=== PATIENT | female | born 1990 | race Caucasian/White ===

== ENCOUNTER 2022-05-19 14:52 | Emergency (ER) | payer OTHER ==
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
== END 2022-05-19 16:03 | disposition home or self-care (01) ==
LOC: ER 14:52
DX: F32.A Depression, unspecified (principal); F43.20 Adjustment disorder, unspecified
CPT/HCPCS: 99283

== ENCOUNTER 2022-05-21 01:43 | Emergency (ER) | payer OTHER ==
[2022-05-21] MEDS ORDERED: LIDOCAINE 1% MPF 30 ML VIAL ONE (01:59)
[2022-05-21] MEDS ORDERED: ONDANSETRON 4 MG (ODT) TAB ONE (02:15)
[2022-05-21] MEDS ORDERED: MORPHINE 4 MG/ML SYR ONE (03:11)
[2022-05-21] MEDS ORDERED: AMOX/K CLAV 875 MG TAB ONE (03:50)
[2022-05-21] MEDS ORDERED: TETANUS & DIPHTHERIA TOX,ADULT 0.5 ML VIAL ONE (03:50)
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
[2022-05-21 06:02] VITALS: TEMP 98.4; O2SAT 100
[2022-05-21 06:04] VITALS: BP 108/62
--- NOTE | 2022-05-21 10:48 | RAD REPORT ---
EXAM DESCRIPTION: XR HAND CLINICAL HISTORY: Laceration, eval for foreign body COMPARISON: None. TECHNIQUE: XR HAND 3 OR MORE VIEWS 05/21/2022 2:11 AM CDT FINDINGS: There is no fracture. Joint spaces are preserved. Soft tissues are unremarkable. IMPRESSION: No acute osseous findings. Electronically signed by: Arjun Villalpando MD 05/21/2022 3:36 AM CDT Due to temporary technical issues with the PACS/Fluency reporting system, reports are being signed by the in house radiologists without review as a courtesy to insure prompt reporting. The interpreting radiologist is fully responsible for the content of the report.
== END 2022-05-21 04:16 | disposition home or self-care (01) ==
LOC: ER 01:43
PROC: 0JQJ0ZZ Repair Right Hand Subcutaneous Tissue and Fascia, Open Approach (ICD-10-PCS; principal; 2022-05-21)
DX: S61.411A Laceration without foreign body of right hand, initial encounter (principal); Z23 Encounter for immunization; Z94.0 Kidney transplant status
CPT/HCPCS: 73130; 90471; 90714; 96372; 99284; 12005; Q0162

== ENCOUNTER 2022-05-21 10:21 | Emergency (ER) | payer OTHER ==
--- OUTSIDE RECORDS SUMMARY | 2022-05-21 10:24 | XMS REPORT | Continuity of Care Document ---
:1990 Author Organization [facility] t Address [address] [place] [address] Care Team Providers Name Role Phone RAMIREZSAILAJA BOO ENMA Primary Care Physician Unavailable MARY DELEON Attending Clinician Unavailable Sneha Saxena RN Attending Clinician Unavailable Only, Pcp [address] Test Attending Clinician Unavailable Fatuma Kulkarni MD Attending Clinician FATUMA KULKARNI Attending Clinician Unavailable Dang Martínez Attending Clinician MONCHO MORAN Attending Clinician Unavailable UNKNOWN, ATTENDING Attending Clinician Unavailable Payers Payer Name Policy Type Policy Number Effective Date Expiration Date [facility] [id number] 2019 PPO 00:00:00 [employer] [id number] 2020 00:00:00 Problems Condition Condition Condition Status Onset Resolution Last Treating Co mments Source Name Details Category Date Date Treatment Clinician Date Elevated Elevated Disease Active 2012-09 Overview[facility] serum serum 10-07 Formatem Chaney creatinine creatinine 00:00: g of this Medical 00 note Center might be different from the original. Creatinin e elevated with previous labs, now decreased . Biopsy and ultrasoun d downLast Assessmen t & Plan: Formattin g of this note might be different from the original. Continue to monitor creatinin e CKD CKD Disease Active 2012-[address] [facility] (ch[facility] 09-23 [facility] kidney 00:00: Medical disease) disease) 00 Center stage 5, stage 5, GFR less GFR less than 15 than 15 ml/min ml/min Status Status Disease Active 2012-09 Overview: [facility] post post 09-23 [facility] 00:00: g of this Medical transplant transplant 00 note Ce nter might be different from the original. S/p LRKT. Biopsy and ultrasoun d on 08/03/13 negative for rejection ICD9 DX ReplacerL ast Assessmen t & Plan: Formattin g of this note might be different from the original. On cyclospor ine, prednison e and myforticC reatinine improving Interstiti Interstiti Disease Active 2012-[address] al al 09-19 [facility] nephritis nephritis 00:00: Medi ashu 00 Center Immunosupp Immunosupp Disease Active 2012-09 Overview : [facility] ression ression 09-17 [facility] 00:[facility]: [facility] of this Medical 00 note Center might be different from the original. On cyclospor ine 150/150, prednison e 10, myfortic 720/720. Cyclospor ine level today 238, previousl y elevated as wellLast Assessmen t & Plan: Formattin g of this note might be different from the original. Will reduce cyclospor ine to 125/125. This was communica jimenez and explained to the patient with plenty of time allotted for questions . HSP HSP Disease Active Overview: [facility] ([facility] ([facility]och 10-12 [facility] Sch[facility]lein Schonlein 00:00: g of this M edical purpura) purpura) 00 note Center might be different from the original. As a child HTN HTN Disease Active 2011-09 Overview: [facility] (hypertens (hypertens 2-13 [facility] ion) ion) 00:00: g of this Medical 00 note Center might be different from the original. BPs elevated on home monitor, which patient states correlate s well with clinic monitorLa st Assessmen t & Plan: Formattin g of this note might be different from the original. Will defer managemen t of hypertens ion to nephrolog y No known No known Disease Unive rs active active ity of problems problems [facility] Morbid Morbid Problem Active 2021-04-17 Rahul be obesity obesity 21:43:25 l (disorder) (disorder) He rmann Active Problem 04/17/2021 [facility] Group Irregular Irregular Problem Active 2021-04-17 Memoria periods periods 21:43:25 l (finding) (finding) Alfredo main Active Problem 04/17/2021 Medical Group Mixed Mixed Problem Active 2021-04-17 Memor ia anxiety anxiety 21:43:25 l and and Remi depressive depressive disorder disorder (disorder) (disorder) Active Problem 04/17/2021 Medical Group Allergies, Adverse Reactions, Alerts Allergy Allergy Status Severity Reaction(s) Onset Inactive Treating Comm ents Source Name Type Date Date Clinician NO KNOWN Drug Active Univers ALLERGIE Class [facility] [place] [facility] Family History Family Member Diagnosis Comments Start Date Stop Date Source Maternal grandmother Cancer [facility] Maternal grandmother Heart attack [facility] Paternal grandfather Arthritis [facility] Paternal grandfather Heart attack [facility] Paternal grandfather Stroke [facility] Paternal grandmother Cancer [facility] Paternal grandmother Hypertension [facility] Social History Social Habit Start Date Stop Date Quantity Comments Source Exposure to Yes [facility] of SARS-CoV-2 [place] [facility] (event) Branch History SDOH [facility] Alcohol Frequency Medical Center History SDOH [facility] Alcohol Std Medical Cente r Drinks History SDOH [facility] Alcohol Binge Medical Anai ter Social History 2021-02-11 2021-02-11 [facility] saba 20:57:23 20:57:23 Alcohol intake 2014-06-04 2014-06-[address] [address] Ami es 00:00:00 00:00:00 non-drinker of Medical Ce nter alcohol (finding) Tobacco use and 2012-08-24 2012-08-[address] [facility] kes exposure 00:00:00 00:00:00 Medical Center History SDOH 2012-08-24 2012-08-[address] [facility] Alcohol Comment 00:00:00 00:00:00 Medical C enter Sex Assigned At [address] 00:00:00 00:00:00 Medical Center Smoking Status Start Date Stop Date Source Never smoker [facility] Medications Ordered Filled Start Stop Current Ordering Indication Dosage Frequency Signature Comments Components Source Medication Medication Date Date Medication? Clinician (SIG) Name Name albuterol Yes [id number] 2{puff} Inhale 2 Univers 90 7-10 Puffs ity of mcg/actuati 00:00: every 4 Inderjit as on inhaler 00 (four) Medical hours as Branch needed for Wheezing or Shortness of Breath. albuterol Yes [id number] 2{puff} Inhale 2 Univers 90 7-10 Puffs ity of mcg/actuati 00:00: every 4 Inderjit as on inhaler 00 (four) Medical hours as Branch needed for Wheezing or Shortness of Breath. sertraline Yes 150 mg = Mem oria 100 mg oral 6-02 1.5 tab, l tablet 20:08: PO, Daily, Alma nn 00 # 135 tab, 1 Refill(s), Pharmacy: [facility] #[id number], 167.64, cm, 02/11/21 14:47:00 CDT, Height, 115.085, kg, 02/11/21 14:47:00 CDT, Weight tacrolimus Yes 0.5 mg = 1 M emoria 0.5 mg oral 6-02 cap, PO, l capsule 19:49: Daily, 0 Ion n 00 Refill(s) sertraline No 100 mg = 1 M emoria 100 mg oral 6-02 tab, PO, l tablet 19:48: Daily, # [place] 00 30 tab, 1 Refill(s) tacrolimus Yes 1 mg = 1 Mem oria 1 mg oral 6-02 cap, PO, l capsule 19:48: Q12H, # Remi 00 180 cap, 0 Refill(s) predniSONE Yes 5mg QD Take [address] (DELTASONE) 3-24 by mouth Luke s 5 MG tablet 14:51: daily. [facility] ashu 53 Center sulfamethox Yes 1{tbl} QD Take [address] azole-trime 3-24 tablet by Ami es thoprim 14:51: mouth Medical (BACTRIM,SE 53 daily. Center PTRA) discontinu 400-80 mg ed per tablet ferrous Yes 325mg Take 325 [facility] sulfate 325 3-24 mg by [facility]ukes (65 FE) MG 14:51: mouth Medica l tablet 53 daily with Center breakfast. multivitami 2015-0 Yes 1{tbl} QD Take [address] n 3-24 tablet by Shiv (MULTIVITAM 14:51: mouth Medic al IN) per 53 daily. Coulter tablet Immunizations Ordered Filled Immunization Date Status Comments Sarita potts Immunization Name Name SARS-COV-2 COVID-19 2021-01-26 Completed Unive rsity of MODERNA VACCINE 00:00:00 [facility] SARS-COV-2 COVID-19 2021-01-26 Completed Unive rsity of MODERNA VACCINE 00:00:00 [facility] Moderna COVID-19 Moderna COVID-19 2021-01-26 Completed Vaccine Vaccine 00:00:00 SARS-COV-2 COVID-19 2020-12-29 Completed Unive rsity of MODERNA VACCINE 00:00:00 [facility] SARS-COV-2 COVID-19 2020-12-29 Completed Unive rsity of MODERNA VACCINE 00:00:00 [facility] Moderna COVID-19 Moderna COVID-19 2020-12-29 Completed Vaccine Vaccine 00:00:00 Vital Signs Vital Name Observation Time Observation Value Comments Source Systolic (mm Hg) 2021-02-11 19:47:00 Rahul Khalil Diastolic (mm Hg) 2021-02-11 19:47:00 Caden orisandra Khalil Heart Rate 2021-02-11 19:47:00 Rachel Khalil Temperature Oral (F) 2021-02-11 19:47:00 97.5 F [facility] Remi Height 2021-02-11 19:47:00 167.64 cm [facility] Remi Weight 2021-02-11 19:47:00 [facility] Remi BMI Calculated 2021-02-11 19:47:00 Carmelo Rodriguez Procedures Procedure Date / Time Performed Performing Clinician Sarita potts PAP smear 2019-06-22 05:00:00 Rachel vigil preparation<sup>1</sup> Encounters Start End Encounter Admission Attending Care Care Encounter Source Date/Time Date/Time Type Type Clinicians Facility Department ID 2021-07-13 Emergency [facility] [id number] Univers 07:18:09 ity of [facility] 2021-07-12 Emergency [facility] [id number] Univers 16:08:42 ity [facility] 2021-09-07 2021-09-07 Outpatient R [facility] [id number] Univers 19:45:00 19:45:00 [id number] ity [facility] 2021-09-07 2021-09-07 Outpatient R PANCHO, [facility] [id number] Univers 19:45:00 19:45:00 [facility] 2021-05-21 2021-05-21 Telephone EDGARD Saxena [id number] Univers 00:00:00 00:00:00 Sneha HAYES [id number] it y of HOSPITAL [id number] Inderjit as [id number] [address] 2021-05-19 2021-05-19 Laboratory Only, Pcp [address] Test [facility] [id number] Univers 14:01:17 14:16:17 Only Fatuma Kulkarni PRIMARY [id number] ity of [facility] [id number] [id number] [address] 2021-05-19 2021-05-19 [facility] [id number] Univers 14:00:00 14:00:00 FATUMA [facility] 2021-05-19 2021-05-19 Outpatient [facility] [id number] Univers 14:00:00 14:00:00 [id number] [facility] 2021-04-15 2021-04-15 Ambulatory nullFlavo [facility] [id number] Memoria 15:30:00 15:30:00 Pre-Reg r Primary 01 l Ayden Arciniega 2021-04-15 2021-04-15 Outpatient [facility]IE [place] [id number] Memoria 10:30:00 10:30:00 01 madison Khalil 2021-04-15 2021-04-15 [id number] 10:30:00 10:30:00 Matt Lopes 2021-02-11 2021-02-12 Outpatient nullFlavo [facility] [id number] Memoria 19:30:00 04:59:59 r Primary 00 l Ayden Arciniega 2021-02-11 2021-02-11 Outpatient Recavarren [facility] [id number] 14:30:00 23:59:59 Lopes, 00 Dang Walter 2021-02-11 2021-02-11 Outpatient SHERIDEBBI [facility] [id number] Memoria 14:30:00 14:30:00 00 madison Khalil 2021-01-26 2021-01-26 Outpatient R LUISA, [facility] [id number] Univers 08:40:00 08:40:00 MONCHO [facility] 2021-01-26 2021-01-26 Outpatient GCCOVIDV GCCOVIDV [id number] GCCOVID 00:00:00 00:00:00 V 2020-12-29 2020-12-29 Outpatient [facility] [id number] Univers 08:40:00 [facility]:40[facility] 2020-12-29 2020-12-29 Outpatient [facility] [id number] Univers 07:20:00 07:20:00 [facility] 2020-12-29 2020-12-29 Outpatient GCCOVIDV GCCOVIDV [id number] GCCOVID 00:00:00 00:00:00 V 2020-12-16 2020-12-16 Outpatient [facility] [id number] Univers 14:00:00 14:00:00 [facility] 2020-10-21 2020-10-21 Outpatient R [facility] [id number] Univers 15:00:00 15:00:00 [id number] [facility] 2020-10-20 2020-10-20 Outpatient R [facility] [id number] Univers 10:00:00 10:00:00 [id number] [facility] 2020-10-20 2020-10-20 Outpatient R NERY, [facility] [id number] Univers 10:00:00 10:00:00 FATUMA [facility] 2020-07-15 2020-07-15 Outpatient R [facility] [id number] Univers 10:30:00 10:30:00 [id number] [facility] 2020-07-15 2020-07-15 Outpatient R UNKNOWN, [facility] [id number] [facility] 10:30:00 10:30:00 ATTENDING y [facility] Results This patient has no known results.
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
[2022-05-21] MEDS ORDERED: HYDROCODONE/APAP 10/325 TAB ONE (12:29)
[2022-05-21 13:19] VITALS: BP 124/93; TEMP 98; O2SAT 100
== END 2022-05-21 12:23 | disposition home or self-care (01) ==
LOC: ER 10:21
DX: S61.411A Laceration without foreign body of right hand, initial encounter (principal)
CPT/HCPCS: 99284

== ENCOUNTER 2022-06-01 07:55 | Day surgery (SDC) | payer OTHER ==
[2022-06-01 08:08] LABS: Specific Gravity 1.017 (1.005-1.030)
[2022-06-01 08:19] LABS: SARS-CoV-2 Antigen Rapid Res Negative (Negative)
[2022-06-01] MEDS ORDERED: CEFAZOLIN SODIUM 1 GM/VIAL ONE (08:36)
[2022-06-01] MEDS ORDERED: Ringers Lactate 1,000 ML IV ONE (08:36)
[2022-06-01] MEDS ORDERED: propofoL 200 MG/20 ML VIAL IV ONE (08:41)
[2022-06-01] MEDS ORDERED: MIDAZOLAM HCL 2 MG/2 ML INJ ONE (08:42)
[2022-06-01] MEDS ORDERED: FENTANYL CITR 100 MCG/2 ML ONE ×2 (08:42→11:05)
[2022-06-01] MEDS ORDERED: LIDOCAINE 1% MPF 5 ML VIAL ONE (08:42)
[2022-06-01] MEDS ORDERED: NS 0.9% VIAL 10 ML ONE (09:20)
[2022-06-01] MEDS ORDERED: dexAMETHasone 10 MG/ML VIAL ONE (09:41)
[2022-06-01] MEDS ORDERED: ONDANSETRON 4 MG/2 ML VIAL ONE (10:23)
[2022-06-01] MEDS ORDERED: KETOROLAC 30 MG/ML INJ ONE (10:23)
[2022-06-01] MEDS: MORPHINE 4 MG/ML SYR ONE ×2 (10:32→10:37)
[2022-06-01 11:04] VITALS: O2SAT 97
[2022-06-01] MEDS ORDERED: HYDROCODONE/APAP 10/325 TAB PO ONE (11:29)
[2022-06-01] MEDS ORDERED: HYDROCODONE/APAP 10/325 TAB ONE (11:43)
[2022-06-01 12:03] VITALS: BP 102/59; TEMP 97.4
--- NOTE | 2022-06-02 08:31 | HP ---
Date of Admission: 06/01/2022 History Of Present Illness: Patient is a 31-year-old white female, right-hand dominant, who cut her right thumb on 05/21/2022 . She has history of a kidney transplant . She has an oblique laceration sutures in place over the right thumb at the MCP level, has numbness in the radia l half of the thumb assessment, laceration of the radial nerve, possible artery of the right thumb. Plan: Exploration and repair. JESUS/JUANITA Voice ID: [id number]
--- NOTE | 2022-06-02 08:31 | OP ---
Surgeon: Wilner Lagnley MD Preoperative Diagnosis: Laceration of the right thumb. Postoperative Diagnosis: Laceration of the right thumb with laceration of the radial digital nerve. Procedures Performed: Debridement of skin and subcu tissue and dissection and repair of lacerated ra dial digital nerve. Anesthesia: General. Procedure In Detail: After satisfactory induction of general anesthesia, the right hand was prepped with Betadine scrub, Betadine paint, and dry sterile drapes applied in usual manner. The arm was iliana vated and exsanguinated with Esmarch. Tourniquet inflated to 250 mmHg. Hand placed on roll lock tab le. Sutures were removed from the previous closure and then proximal distal extension was made. Dis section proceeded down. The patient had laceration of the flexor sheath, but the hand was intact. T he artery had thrombosed and the nerve had been transected and retracted proximally and distally. Th ey were identified proximally and distally and then the Zeiss microscope was brought into the field a nd epineural dissection was done and an epineural repair with 9-0 Prolene sutures. After this was do ne, the tourniquet was released. Electrocautery was used for hemostasis. Skin was debrided as neede d for closure and wounds were closed with 4-0 Prolene horizontal mattress and vertical mattress simpl e sutures. Dressed with Xeroform, 2 inch Lit. The patient tolerated procedure well and returned t o recovery. JESUS/JUANITA Voice ID: [id number] Report ID: [id number]
== END 2022-06-01 12:06 | disposition home or self-care (01) ==
LOC: DS 07:55
PROVIDERS: ATTEND Specialist
PROC: 01Q60ZZ Repair Radial Nerve, Open Approach (ICD-10-PCS; principal; 2022-06-01 09:00)
DX: S61.011A Laceration without foreign body of right thumb without damage to nail, initial encounter (principal); S64.21XA Injury of radial nerve at wrist and hand level of right arm, initial encounter
CPT/HCPCS: 36415; 81025; 87811; 64834; 69990; J2704; J2001; J2250; J3010 ×2; J1100; A4216; J7120; J2405; J0690

== ENCOUNTER 2022-06-06 08:32 | Emergency (ER) | payer OTHER ==
--- OUTSIDE RECORDS SUMMARY | 2022-06-06 08:36 | XMS REPORT | Continuity of Care Document ---
:1990 Author Organization [facility] t Address [address] [place] [address] Care Team Providers Name Role Phone Sharpless Primary Care Physician MARY DELEON Attending Clinician Unavailable Sneha Saxena RN Attending Clinician Unavailable Only, Pcp [address] Test Attending Clinician Unavailable Fatuma Kulkarni MD Attending Clinician FATUMA KULKARNI Attending Clinician Unavailable Dang Martínez Attending Clinician MONCHO MORAN Attending Clinician Unavailable UNKNOWN, ATTENDING Attending Clinician Unavailable Payers Payer Name Policy Type Policy Number Effective Date Expiration Date [facility] [id number] 2019 PPO 00:00:00 [employer] [id number] 2020 00:00:00 Problems Condition Condition Condition Status Onset Resolution Last Treating Co mments Source Name Details Category Date Date Treatment Clinician Date Elevated Elevated Disease Active 2012-09 Overview: [facility] serum serum 10-07 Formattin Shiv creatinine creatinine 00:00: g of this Medical 00 note Center might be different from the original. Creatinin e elevated with previous labs, now decreased . Biopsy and ultrasoun d downLast Assessmen t & Plan: Formattin g of this note might be different from the original. Continue to monitor creatinin e CKD CKD Disease Active 2012-[address] [facility] (chronic (chronic 09-23 [facility] kidney kidney 00:00: Medical disease) disease) 00 [...] t of hypertens ion to nephrolog y Irregular Irregular Problem Active 2021-04-17 Memoria periods periods 21:43:25 l (finding) (finding) Herm jose david Active Problem 04/17/2021 [facility] Group Mixed Mixed Problem Active 2021-04-17 Memor ia anxiety anxiety 21:43:25 l and and Remi depressive depressive disorder disorder (disorder) (disorder) Active Problem 04/17/2021 Medical Group Morbid Morbid Problem Active 2021-04-17 Rahul be obesity obesity 21:43:25 l (disorder) (disorder) Obi blake Active Problem 04/17/2021 Medical Group No known No known Disease Unive rs active active ity of problems problems [facility] Allergies, Adverse Reactions, Alerts Allergy Allergy Status Severity Reaction(s) Onset Inactive Treating Comm ents Source Name Type Date Date Clinician NO KNOWN Drug Active Univers ALLERGIE Class ity of [facility] Family History Family Member Diagnosis Comments Start Date Stop Date Source Maternal grandmother Cancer [facility] Maternal grandmother Heart attack [facility] Paternal grandfather Arthritis [facility] Paternal grandfather Heart attack [facility] Paternal grandfather Stroke [facility] Paternal grandmother Cancer [facility] Paternal grandmother Hypertension [facility] Social History Social Habit Start Date Stop Date Quantity Comments Source Exposure to Yes University SARS-CoV-2 [place] [facility] (event) Branch History SDOH [facility] Alcohol Frequency Medical Center History SDOH [facility] Alcohol Std Medical Cente r Drinks History SDOH [facility] Alcohol Binge Medical Anai ter Social History 2021-02-11 [facility] 20:57:23 Alcohol intake 2014-06-04 2014-06-04 Current [...] Start Date Stop Date Source Never smoker [facility] Medications Ordered Filled Start Stop Current Ordering Indication Dosage Frequency Signature Comments Components Source Medication Medication Date Date Medication? Clinician (SIG) Name Name albuterol Yes [id number] 2{puff} Inhale 2 Univers 90 7-10 Puffs ity of mcg/actuati 00:00: every 4 Inderjit as on inhaler 00 (four) Medical hours as Branch needed for Wheezing or Shortness of Breath. albuterol Yes [id number] 2{puff} Inhale 2 Univers 90 7-10 Puffs ity of mcg/actuati 00:00: every 4 Inderjit as on inhaler 00 (four) Medical hours as Branch needed for Wheezing or Shortness of Breath. sertraline Yes 150 mg = Mem oria 100 mg oral 6-02 1.5 tab, l tablet 20:08: PO, Daily, Alma nn 00 # 135 tab, 1 Refill(s), Pharmacy: [facility] STORE #[id number], 167.64, cm, 02/11/21 14:47:00 CDT, Height, 115.085, kg, 02/11/21 14:47:00 CDT, Weight sertraline Yes 150 mg = Mem oria 100 mg oral 6-02 1.5 tab, l tablet 20:08: PO, Daily, Alma nn 00 # 135 tab, 1 Refill(s), Pharmacy: [facility] STORE #[id number], 167.64, cm, 02/11/21 14:47:00 CDT, Height, 115.085, kg, 02/11/21 14:47:00 CDT, Weight tacrolimus Yes 0.5 mg = 1 M emoria 0.5 mg oral 6-02 cap, PO, l capsule 19:49: Daily, 0 Ion n 00 Refill(s) tacrolimus Yes 0.5 mg = 1 M emoria 0.5 mg oral 6-02 cap, PO, l capsule 19:49: Daily, 0 Ion n 00 Refill(s) sertraline No 100 mg = 1 M emoria 100 mg oral 6-02 tab, PO, l tablet 19:48: Daily, # [place] 00 30 tab, 1 Refill(s) tacrolimus Yes 1 mg = 1 Mem oria 1 mg oral 6-02 cap, PO, l capsule 19:48: Q12H, # [place] 00 180 cap, 0 Refill(s) sertraline No 100 mg = 1 M emoria 100 mg oral 6-02 tab, PO, l tablet 19:48: Daily, # Remi 00 30 tab, 1 Refill(s) tacrolimus Yes 1 mg = 1 Mem oria 1 mg oral 6-02 cap, PO, l capsule 19:48: Q12H, # [place] 00 180 cap, 0 Refill(s) predniSONE Yes 5mg QD Take [address] (DELTASONE) 3-24 by mouth Luke s 5 MG tablet 14:51: daily. [address] sulfamethox Yes 1{tbl} QD Take [address] azole-trime 3-24 tablet by Ami es thoprim 14:51: mouth Medical (BACTRIM,SE 53 daily. [place] PTR) discontinu 400-80 mg ed per tablet ferrous Yes 325mg Take 325 [facility] sulfate 325 3-24 mg by Lukes (65 FE) MG 14:51: mouth Medica l tablet 53 daily with Center breakfast. multivitami Yes 1{tbl} QD Take [address] n 3-24 tablet by Lukes (MULTIVITAM 14:51: mouth Medic al [place]) per 53 daily. Center tablet predniSONE Yes 5mg QD Take [address] (DELTASONE) 3-24 by mouth Luke s 5 MG tablet 14:51: daily. [address] sulfamethox Yes 1{tbl} QD Take [address] azole-trime 3-24 tablet by Ami es thoprim 14:51: mouth Medical (BACTRIM,SE 53 daily. [place] PTR) discontinu 400-80 mg ed per tablet ferrous Yes 325mg Take 325 [facility] sulfate 325 3-24 mg by Lukes (65 FE) MG 14:51: mouth Medica l tablet 53 daily with Center breakfast. multivitami Yes 1{tbl} QD Take [address] n 3-24 tablet by Lukes (MULTIVITAM 14:51: mouth Medic al [place]) per 53 daily. Center tablet Immunizations Ordered Filled Immunization Date Status Comments [facility] e Immunization Name Name SARS-COV-2 COVID-19 2021-01-26 Completed Unive rsity of MODERNA VACCINE 00:00:00 [facility] SARS-COV-2 COVID-19 2021-01-26 Completed Unive rsity of MODERNA VACCINE 00:00:00 [facility] Moderna COVID-19 Moderna COVID-19 2021-01-26 Completed Vaccine Vaccine 00:00:00 SARS-COV-2 COVID-19 2020-12-29 Completed Unive rsity of MODERNA VACCINE 00:00:00 [facility] SARS-COV-2 COVID-19 2020-12-29 Completed Unive rsity of MODERNA VACCINE 00:00:00 [facility] Moderna COVID-19 Moderna COVID-19 2020-12-29 Completed Vaccine Vaccine 00:00:00 Vital Signs Vital Name Observation Time Observation Value Comments Source Heart Rate 2021-02-11 19:47:[address] [facility] Remi Temperature Oral (F) 2021-02-11 19:47:00 97.5 F [facility] Height 2021-02-11 19:47:00 [facility] Weight 2021-02-11 19:47:00 [facility] BMI Calculated 2021-02-11 19:47:00 Carmelo Rodriguez Systolic (mm Hg) 2021-02-11 19:47:00 Rahul Khalil Diastolic (mm Hg) 2021-02-11 19:47:00 Mem orial Remi Procedures Procedure Date / Time Performed Performing Clinician Sarita e PAP smear 2019-06-22 05:00:00 Rachel vigil preparation<sup>1</sup> Encounters Start End Encounter Admission Attending Care Care Encounter Source Date/Time Date/Time Type Type Clinicians Facility Department ID 2021-07-13 Emergency [facility] [id number] Univers 07:18:09 ity [facility] 2021-07-12 Emergency [facility] [id number] Univers 16:08:42 ity [facility] 2021-09-07 2021-09-07 Outpatient R [facility] [id number] Univers 19:45:00 19:45:00 [id number] [facility] 2021-09-07 2021-09-07 Outpatient Mauricio DELEON [facility] [id number] Univers 19:45:00 19:45:00 MARY [facility] 2021-05-21 2021-05-21 Telephone EDGARD Saxena [id number] Univers 00:00:00 00:00:00 Sneha HAYES [id number] it y of HOSPITAL [id number] Inderjit as [id number] [address] 2021-05-19 2021-05-19 Laboratory Only, Pcp [address] Test [facility] [id number] Univers 14:01:17 14:16:17 Only Fatuma Kulkarni PRIMARY [id number] ity of [facility] [id number] Inderjita s MIKE [id number] [address] 2021-05-19 2021-05-19 Outpatient [facility] [id number] Univers 14:00:00 14:00:00 [id number] [facility] 2021-05-19 2021-05-19 Outpatient Mauricio KULKARNI [facility] [id number] Univers 14:00:00 14:00:00 FATUMA [facility] 2021-04-15 2021-04-15 [place] [id number] Memoria 15:30:00 15:30:00 Pre-Reg r Primary 01 l [facility] 2021-04-15 2021-04-15 [place] [id number] Memoria 15:30:00 15:30:00 Pre-Reg r Primary 01 l [facility] 2021-04-15 2021-04-15 Outpatient MHIE MHIE [id number] Memoria 10:30:00 10:30:00 01 [place] 2021-04-15 2021-04-15 Outpatient Recavarren MG MG [id number] 10:30:00 10:30:00 Matt Lopes 2021-02-11 2021-02-12 Outpatient nullFlavo [facility] [id number] Memoria 19:30:00 04:59:59 r Primary 00 l Care Remi Arciniega 2021-02-11 2021-02-12 Outpatient nullFlavo [facility] [id number] Memoria 19:30:00 04:59:59 r Primary 00 l Care Remi Arciniega 2021-02-11 2021-02-11 Outpatient Recavarren MG MG [id number] 14:30:00 23:59:59 Lopes, 00 Dang Walter 2021-02-11 2021-02-11 Outpatient MHIE IE [id number] Memoria 14:30:00 14:30:00 00 l Remi 2021-01-26 2021-01-26 Outpatient Mauricio MORAN [facility] [id number] Univers 08:40:00 08:40:00 MONCHO [facility] 2021-01-26 2021-01-26 Outpatient GCCOVIDV GCCOVIDV [id number] GCCOVID 00:00:00 00:00:00 V 2020-12-29 2020-12-29 Outpatient [facility] [id number] Univers 08:40:00 08:40:00 [facility] 2020-12-29 2020-12-29 Outpatient [facility] [id number] Univers 07:20:00 07:20:00 [facility] 2020-12-29 2020-12-29 Outpatient GCCOVIDV GCCOVIDV [id number] GCCOVID 00:00:00 00:00:00 V 2020-12-16 2020-12-16 Outpatient [facility] [id number] Univers 14:00:00 [facility]-10[facility] 2020-10-21 Outpatient R [facility] [id number] Univers 15:00:00 15:00:00 [id number] [facility] 2020-10-20 2020-10-20 Outpatient R [facility] [id number] Univers 10:00:00 10:00:00 [id number] [facility] 2020-10-20 2020-10-20 Outpatient Mauricio KULKARNI [facility] [id number] Univers 10:00:00 10:00:00 FATUMA [facility] 2020-07-15 2020-07-15 Outpatient R [facility] [id number] Univers 10:30:00 10:30:00 [facility] 2020-07-15 2020-07-15 Outpatient R UNKNOWN, [facility] [id number] Univers 10:30:00 10:30:00 ATTENDING [facility] Results This patient has no known results.
[2022-06-06] MEDS ORDERED: LIDOCAINE VISCOUS 2% SOLN 15 ML UDC ONE (09:10)
[2022-06-06] MEDS ORDERED: MAGNES/ALUMIN/SIMET 30ML UCUP ONE (09:11)
[2022-06-06] MEDS ORDERED: FAMOTIDINE 20 MG/2 ML VIAL IV ONE (09:11)
[2022-06-06 09:19] LABS: Absolute Lymphocytes (CBC) 3.1 K/uL (0.7-4.9); Hematocrit 30.5 % (36.0-45.0); Lymphocytes % 24.9 % (15.3-44.8); MCV 65.8 fL (80-100); MPV 8.5 fL (7.6-11.3); RBC Red Blood Cell Count 4.63 M/uL (3.86-4.86)
[2022-06-06 09:34] LABS: Troponin High Sensitivity 3.1 pg/mL (<58.9)
--- NOTE | 2022-06-06 09:38 | RAD REPORT ---
EXAM DESCRIPTION: RAD - Chest Single View - 06/06/2022 9:16 am CLINICAL HISTORY: CHEST PAIN COMPARISON: None TECHNIQUE: AP portable chest image was obtained 06/06/2022 9:16 am . FINDINGS: Lungs are clear. Heart and vasculature are normal. No measurable pleural effusion and no p neumothorax. No acute bony abnormality seen. No acute aortic findings suspected. IMPRESSION: No acute cardiopulmonary process.
--- NOTE | 2022-06-06 09:48 | EDPHYS ---
Physician Documentation [facility] Name: Robyn Worthy Age: 31 yrs Sex: Female : 1990 Arrival Date: 06/06/2022 Time: 08:36 Bed 6 Private MD: ED Physician Pancho Harrison HPI: 06/06 08:52 This 31 yrs old Female presents to ER via Ambulatory with complaints of Chest Tightness.[facility] 08:52 The patient or guardian reports chest pain that is located primarily in the anterior [facility] chest wall. The pain does not radiate. Associated signs and symptoms: Pertinent positives: shortness of breath. This is a 31-year-old female with a history of hypertension and kidney transplant that presents to the ER with complaints of chest discomfort and painful swallowing. This has been ongoing since she had a surgery yesterday on her right hand. Believes it is most likely due to the intubation. Denies any leg swelling. Denies any hemoptysis. Denies fever.. 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 - Social history:: Smoking status: Patient denies any tobacco usage or history of. ROS: 08:52 Constitutional: Negative for fever, chills, and weight loss. jmm 08:52 Cardiovascular: Positive for chest pain. 08:52 Respiratory: Positive for shortness of breath. 08:52 All other systems are negative. Exam: 08:52 Constitutional: This is a well developed, well nourished patient who is awake, alert, jmm and in no acute distress. Head/Face: atraumatic. Eyes: EOMI, no conjunctival erythema appreciated ENT: Moist Mucus Membranes Neck: Trachea midline, Supple Chest/axilla: Normal chest wall appearance and motion. Cardiovascular: Regular rate and rhythm. No edema appreciated Respiratory: Normal respirations, no respiratory distress appreciated Abdomen/GI: Non distended Back: Normal ROM Skin: General appearance color normal MS/ Extremity: Moves all extremities, no obvious deformities appreciated, no edema noted to the lower extremities Neuro: Awake and alert Psych: Behavior is normal, Mood is normal, Patient is cooperative and pleasant 09:51 ECG was reviewed by the Attending Physician. [facility] Vital Signs: 08:42 BP 132 / 86; Pulse 92; Resp 17; Temp 98.2(TE); Pulse Ox 100% on R/A; Weight 113.4 kg tw2 (R); Height 5 ft. 5 in. (165.10 cm); Pain 7/10; 09:00 BP 115 / 84; Pulse 83; Pulse Ox 100% on R/A; kr3 10:04 BP 104 / 58; Pulse 75; Resp 18; Pulse Ox 100% on R/A; kr3 08:42 Body Mass Index 41.60 (113.40 kg, 165.10 cm) tw2 MDM: 08:52 Patient medically screened. [facility] 09:47 Data reviewed: vital signs, nurses notes. Counseling: I had a detailed discussion with [facility] the patient and/or guardian regarding: the historical points, exam findings, and any diagnostic results supporting the discharge/admit diagnosis, lab results, radiology results, the need for outpatient follow up, to return to the emergency department if symptoms worsen or persist or if there are any questions or concerns that arise at home. 15:00 Data reviewed: vital signs. [facility] 06/06 08:53 Order name: Basic Metabolic Panel; Complete Time: 09:40 [facility] 06/06 08:53 Order name: CBC with Diff; Complete Time: 14:59 [facility] 06/06 08:53 Order name: Troponin HS; Complete Time: 09:40 [facility] 06/06 08:53 Order name: XRAY Chest (1 view); Complete Time: 09:40 [facility] 06/06 10:01 Order name: Manual Differential; Complete Time: 14:59 [facility] 06/06 08:53 Order name: EKG; Complete Time: 08:54 [facility] 06/06 08:53 Order name: Cardiac monitoring; Complete Time: 08:54 [facility] 06/06 08:53 Order name: EKG - Nurse/Tech; Complete Time: 08:54 [facility] 06/06 08:53 Order name: IV Saline Lock; Complete Time: 09:21 [facility] 06/06 08:53 Order name: Labs collected and sent; Complete Time: 09:22 [facility] 06/06 08:53 Order name: O2 Per Protocol; Complete Time: [facility] 06/06 08:53 Order name: O2 Sat Monitoring; Complete Time: [facility] EC: Rate is 79 beats/min. Rhythm is regular. QRS [place] is Normal. NC interval is normal. QRS jmm interval is normal. QT interval is normal. No Q waves. T waves are Normal. No ST changes noted. Reviewed by me. Administered Medications: : Drug: Pepcid (famotidine) 20 mg Route: IVP; Site: right antecubital; kr3 10:07 Follow up: Response: No adverse reaction kr3 09:21 Drug: GI Cocktail without - (Maalox Suspension 30 ml, Lidocaine Liquid 2 % 15 kr3 ml) Route: PO; 10:06 Follow up: Response: No adverse reaction kr3 Disposition: 14:51 Co-signature as Attending Physician, Pancho Harrison MD. rn Disposition Summary: 06/06/22 09:48 Discharge Ordered Location: Home [facility] Condition: Stable [facility] Diagnosis - Dysphagia, unspecified [facility] Followup: [facility] - With: Private Physician - When: 2 - 3 days - Reason: Recheck today's complaints, Continuance of care, Re-evaluation by your physician Discharge Instructions: - Discharge Summary Sheet [facility] - Dysphagia [facility] - Esophagitis [facility] Forms: - Medication Reconciliation Form [facility] - Thank You Letter [facility] - Antibiotic Education [facility] - Prescription Opioid Use [facility] Prescriptions: - Carafate 100 mg/mL Oral suspension - take 10 milliliter by ORAL route 4 times per day As needed on an empty stomach [facility] 1 hour before meals and at bedtime; 200 milliliter; Refills: 0, Product Selection Permitted - Pepcid 20 mg Oral Tablet - take 1 tablet by ORAL route every 12 hours for 10 days; 20 tablet; Refills: 0, [facility] Product Selection Permitted Signatures: Dispatcher [employer] Wilmer Marin PA PA jmm Nieto, Roman, MD MD rn Wise, Tara, RN RN tw2 Ekaterina Aguiar RN RN kr3
--- NOTE | 2022-06-06 09:48 | ER ---
Nurse's Notes [facility] Name: Robyn Worthy Age: 31 yrs Sex: Female : 1990 Arrival Date: 06/06/2022 Time: 08:36 Bed 6 Private MD: Diagnosis: Dysphagia, unspecified Presentation: 06/06 08:42 Chief complaint: Patient states: i had surgery Merissa on my RIGHT hand for nerve tw2 repair here and since then i have this tightness in my chest that has progressively gotten worse. when i took my medicine i feel like it is getting lodged there like a rubber band is squeezing it. i dont know if this is possibly from problems after the intubation but i have had trouble since then. i do get windy when trying to breathe. Coronavirus screen: At this time, the client does not indicate any symptoms associated with coronavirus-19. Ebola Screen: Patient denies travel to an Ebola-affected area in the 21 days before illness onset. Initial Sepsis Screen: Does the patient meet any 2 criteria? No. Patient's initial sepsis screen is negative. Does the patient have a suspected source of infection? No. Patient's initial sepsis screen is negative. Risk Assessment: Do you want to hurt yourself or someone else? Patient reports no desire to harm self or others. Onset of symptoms was June 06, 2022. 08:42 Method Of Arrival: Ambulatory tw2 08:42 Acuity: ARMANDO 3 tw2 Triage Assessment: 08:44 General: Appears in no apparent distress. well groomed, Behavior is calm, cooperative, tw2 appropriate for age. Pain: Complains of pain in xiphoid area and mid-sternal area. Cardiovascular: Reports chest tightness. Respiratory: Airway is patent Respiratory effort is even, unlabored, Respiratory pattern is regular, symmetrical. 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 - Social history:: Smoking status: Patient denies any tobacco usage or history of. Screenin:45 Abuse screen: Denies threats or abuse. Nutritional screening: No deficits noted. tw2 Tuberculosis screening: No symptoms or risk factors identified. Fall Risk None identified. Assessment: 09:20 Reassessment: No changes from previously documented assessment. Patient and/or family kr3 updated on plan of care and expected duration. Pain level reassessed. 10:04 Reassessment: No changes from previously documented assessment. Patient and/or family kr3 updated on plan of care and expected duration. Pain level reassessed. Patient is alert, oriented x 3, equal unlabored respirations, skin warm/dry/pink. 10:09 Pain: Pain does not radiate. Pain began gradually. kr3 Vital Signs: 08:42 BP 132 / 86; Pulse 92; Resp 17; Temp 98.2(TE); Pulse Ox 100% on R/A; Weight 113.4 kg tw2 (R); Height 5 ft. 5 in. (165.10 cm); Pain 7/10; 09:00 BP 115 / 84; Pulse 83; Pulse Ox 100% on R/A; kr3 10:04 BP 104 / 58; Pulse 75; Resp 18; Pulse Ox 100% on R/A; kr3 08:42 Body Mass Index 41.60 (113.40 kg, 165.10 cm) tw2 ED Course: 08:36 Patient arrived in ED. mr 08:37 Wilmer Feliz PA is PHCP. jmm 08:37 Pancho Harrison MD is Attending Physician. jmm 08:38 Ekaterina Aguiar, WOLF is Primary Nurse. kr3 08:38 Arm band placed on Patient placed in an exam room, on a stretcher. kr3 08:40 Bed in low position. Call light in reach. Adult w/ patient. Pulse ox on. NIBP on. tw2 08:44 Triage completed. tw2 08:46 EKG completed in triage. Results shown to . tw2 08:46 Patient maintains SpO2 saturation greater than 95% on room air. tw2 08:47 EKG done, by ED staff, reviewed by Pancho Harrison MD. kr3 09:18 XRAY Chest (1 view) In Process Unspecified. EDMS 09:22 Inserted saline lock: 22 gauge in right antecubital area, using aseptic technique. kr3 Blood collected. 10:03 No provider procedures requiring assistance completed. IV discontinued, intact, kr3 bleeding controlled, No redness/swelling at site. Pressure dressing applied. Administered Medications: 09:21 Drug: Pepcid (famotidine) 20 mg Route: IVP; Site: right antecubital; kr3 10:07 Follow up: Response: No adverse reaction kr3 09:21 Drug: GI Cocktail without - (Maalox Suspension 30 ml, Lidocaine Liquid 2 % 15 kr3 ml) Route: PO; 10:06 Follow up: Response: No adverse reaction kr3 Medication: 08:47 VIS not applicable for this client. kr3 Outcome: 09:48 Discharge ordered by . anna 10:08 Discharged to home kr3 10:08 Condition: stable 10:08 Discharge instructions given to patient, Instructed on discharge instructions, follow up and referral plans. Demonstrated understanding of instructions, follow-up care. 10:09 Patient left the ED. kr3 Signatures: Dispatcher [employer] EDMS Wilmer Feliz PA PA jmm Rivera, Mary mr Monica Garrett, WOLF RN tw2 Ekaterina Aguiar RN RN kr3
[2022-06-06 10:00] LABS: Anisocytosis SLIGHT; Blood Morphology Comment NOTED (NOT SEEN); Hypochromasia 1+; Platelet Estimate ADEQ
--- NOTE | 2022-06-07 14:10 | EKG ---
Test Date: 2022-06-06 Test Time: 08:46:02 Ad Operations Specialist: MELINA MEASUREMENT RESULTS: Intervals: Rate: 79 FL: 138 QRSD: 76 QT: 380 QTc: 435 [place]: P: 32 FL: 138 QRS: 60 T: 6 INTERPRETIVE STATEMENTS: Normal sinus rhythm Normal ECG No previous ECG available for comparison Electronically Signed On 06-07-22 14:08:32 CDT by Jack Troncoso
[2022-06-07 19:44] VITALS: TEMP 98.2; O2SAT 100
[2022-06-07 19:51] VITALS: BP 104/58
== END 2022-06-06 10:09 | disposition home or self-care (01) ==
LOC: ER 08:32
DX: R13.10 Dysphagia, unspecified (principal); R07.89 Other chest pain; Z98.890 Other specified postprocedural states; Z94.0 Kidney transplant status
CPT/HCPCS: 36415; 71045; 80048; 84484; 85025; 93005; 96374; 99284